=== PATIENT | female | born 1930 | race Caucasian/White ===

== ENCOUNTER → 2016-09-13 | Outpatient (CLI) | payer OTHER | LOC: FIMAGING 11:13 | PROVIDERS: ATTEND Family Medicine | DX: Z12.31 Encounter for screening mammogram for malignant neoplasm of breast (principal) | CPT/HCPCS: G0202 ==

== ENCOUNTER → 2016-10-18 | Outpatient (CLI) | payer OTHER | LOC: FIMAGING 09:57 | PROVIDERS: ATTEND Family Medicine | DX: M51.16 Intervertebral disc disorders with radiculopathy, lumbar region (principal); M43.16 Spondylolisthesis, lumbar region; M41.86 Other forms of scoliosis, lumbar region; M16.11 Unilateral primary osteoarthritis, right hip; M53.3 Sacrococcygeal disorders, not elsewhere classified ==

== ENCOUNTER → 2017-08-18 | Outpatient (CLI) | payer OTHER | LOC: FIMAGING 09:20 | PROVIDERS: ATTEND Family Medicine | DX: I27.20 Pulmonary hypertension, unspecified (principal); I77.9 Disorder of arteries and arterioles, unspecified; R91.1 Solitary pulmonary nodule ==

== ENCOUNTER → 2018-03-06 | Outpatient (CLI) | payer OTHER | LOC: FIMAGING 10:04 | PROVIDERS: ATTEND Orthopaedic Surgery | DX: M16.11 Unilateral primary osteoarthritis, right hip (principal) ==

== ENCOUNTER → 2018-03-26 | Outpatient (CLI) | payer OTHER | LOC: BHLMT 10:00 | PROVIDERS: ATTEND Internal Medicine Cardiovascular Disease | DX: Z01.810 Encounter for preprocedural cardiovascular examination (principal); I50.9 Heart failure, unspecified | CPT/HCPCS: 93306-PO ==

== ENCOUNTER 2018-04-02 05:41 | Inpatient (IN) | payer OTHER ==
[2018-04-02] MEDS ORDERED: TRANEXAMIC ACID 1,000 MG in NS 100 ML IV ONE (06:00)
[2018-04-02] MEDS ORDERED: POVIDONE-IODINE 20 ML in SODIUM CL IRRIG SOLUTION 500 ML IRR ONE (06:00)
[2018-04-02] MEDS ORDERED: ROPIVACAINE 0.2% 80 MG, EPINEPHrine 0.2 MG, KETOROLAC TROMETHAMINE 30 MG in SYRINGE 0 ML IU ONE (06:00)
[2018-04-02] MEDS ORDERED: ACETAMINOPHEN 325 MG TAB PO ONE (06:12)
[2018-04-02] MEDS ORDERED: FAMOTIDINE 20 MG TAB PO ONE (06:12)
[2018-04-02] MEDS ORDERED: DEXAMETHASONE 4 MG/ML VIAL IVP ONE (06:12)
[2018-04-02] MEDS ORDERED: ceFAZolin 2 GM/DEXTROSE 100 ML IV ONE (06:12)
[2018-04-02] MEDS ORDERED: LR 1,000 ML IV ONE (06:13)
[2018-04-02] MEDS ORDERED: LIDOCAINE 1% 2 ML INJ ID PRN (06:13)
[2018-04-02] MEDS ORDERED: BUPIVACAINE/EPI 0.25% 30 ML SDV ONE (06:36)
--- NOTE | 2018-04-02 07:00 | PDHPUP ---
History & Physical Update H&P update statement: This history and physical update is based on an assessment of the patient which was completed after admission or registration (within 24 hours), but prior to the surgery/procedure. H&P update: H&P reviewed & patient examined, no change in patient's condition since H&P completed
[2018-04-02] MEDS ORDERED: fentaNYL 100 MCG/2 ML INJ ONE (07:13)
--- NOTE | 2018-04-02 07:14 | PDANEPAE ---
ANE History of Present Illness Right RONEL for hip pain ANE Past Medical History - Cardiovascular History Hx Hypertension: Yes Hx Arrhythmias: No Hx Chest Pain: No Hx Coronary Artery / Peripheral Vascular Disease: No Hx CHF / Valvular Disease: No Hx Palpitations: No - Pulmonary History Hx COPD: No Hx Asthma/Reactive Airway Disease: Yes Hx Recent Upper Respiratory Infection: No Hx Oxygen in Use at Home: No Hx Sleep Apnea: No Sleep Apnea Screening Result - Last Documented: Negative Pulmonary History Comment: + asthma. + mod-severe pulmonary hypertension on echo (03/26/18) - Neurologic History Hx Cerebrovascular Accident: No Hx Seizures: No Hx Dementia: No - Endocrine History Hx Diabetes: No Hypothyroid: No Hyperthyroid: No Obesity: no - Renal History Hx Renal Disorders: No - Liver History Hx Hepatic Disorders: No - Neurological & Psychiatric Hx Hx Neurological and Psychiatric Disorders: No - Cancer History Hx Cancer: No - Congenital Disorder History Hx Congenital Disorders: No - GI History Hx Gastrointestinal Disorders: Yes Gastrointestinal History Comment: hx dysphagia - Other Health History Other Health History: bilateral hearing aids. wears glasses. chronic pain from hip, has been having trouble walking - Chronic Pain History Chronic Pain: Yes (right hip) - Surgical History Prior Surgeries: hysterectomy. cholecystectomy. cateract surgery ANE Review of Systems Review of Systems: - Exercise capacity Exercise capacity: limited by disability METS (RN): 3 METS - Cardio Pulmonary Function Testing Transthoracic echocardiogram (TTE): 03/26/18: Normal LV size and function. EF 67%. Normal wall motion. Moderate bi- atrial enlargement. Mild AI without . Moderate MR without MV prolapse. Moderate to sever TR with moderate to severe pulmonary hypertension. Mildly enlarged ascending thoracic aorta. ANE Patient History - Allergies Allergies/Adverse Reactions: Sulfa (Sulfonamide Antibiotics) Allergy (Verified 04/02/18 06:22) Rash - Home Medications Home medications: home medication list seen and reviewed Home Medications: Cholecalciferol Vit D3 [Vitamin D3 (*)] 1,000 units PO DAILY 03/02/18 [Last Taken 03/26/18] Fluticasone/Salmeter 250/50Mcg [Advair 250/50 (*)] 1 puffs IH HS 03/02/18 [Last Taken 03/31/18] Ibuprofen [Motrin (*)] 200 mg PO DAILY PRN 03/02/18 [Last Taken 03/26/18] Lisinopril/Hctz 20/12.5MG [Zestoretic/Prinzide 20/12.5MG (*)] 1 ea PO DAILY 09/12 [Last Taken 04/01/18] Albuterol Sulfate [Proair Hfa] PRN 03/03/18 [Last Taken 03/26/18] Amlodipine Besylate 2.5 mg PO DAILY 04/02/18 [Last Taken 04/02/18 04:30] Tylenol 1,000 mg PO Q6 PRN 04/02/18 [Last Taken 04/01/18] - NPO status NPO Status: no food or drink >8 hours NPO Since - Liquids (Date): 04/01/18 NPO Since - Liquids (Time): 20:30 NPO Since - Solids (Date): 04/01/18 NPO Since - Solids (Time): 20:30 - Anes Hx Anes Hx: post operative nausea and vomiting - Smoking Hx Smoking Status: Never smoked - Family Anes Hx Family Anes Hx: none Family Hx Anesthesia Complications: none ANE Labs/Vital Signs - Vital Signs Blood Pressure: 145/87 Heart Rate: 77 Respiratory Rate: 18 O2 Sat (%): 93 Height: 152.4 cm Weight: 59.874 kg ANE Physical Exam - Airway Neck exam: decreased ROM Mallampati Score: Class 2 Mouth exam: normal dental/mouth exam - Pulmonary Pulmonary: no respiratory distress - Cardiovascular Cardiovascular: regular rate and rhythym - ASA Status ASA Status: III ANE Anesthesia Plan Anesthesia Plan: spinal
[2018-04-02] MEDS ORDERED: PROPOFOL/EMULSION 500 MG/50 ML BOTTLE IV ONE (07:17)
[2018-04-02] MEDS ORDERED: PROPOFOL 200 MG/20 ML VIAL ONE ×2 (08:23→08:54)
[2018-04-02] MEDS ORDERED: PHENYLEPHRINE HCL 100 MCG/ML SYR IVP PRN (08:48)
[2018-04-02] MEDS ORDERED: DEXAMETHASONE 4 MG/ML VIAL IVP PRN (08:48)
[2018-04-02] MEDS ORDERED: fentaNYL 100 MCG/2 ML INJ IVP PRN (08:48)
[2018-04-02] MEDS ORDERED: MEPERIDINE 25 MG/0.5 ML AMP IVP PRN (08:48)
[2018-04-02] MEDS ORDERED: NALOXONE HCL 0.4 MG/ML INJ IVP PRN (08:48)
[2018-04-02] MEDS ORDERED: METOCLOPRAMIDE 10 MG/2 ML VIAL IVP PRN ×2 (08:48→09:41)
[2018-04-02] MEDS ORDERED: ONDANSETRON 4 MG/2 ML VIAL IVP PRN ×2 (08:48→09:41)
[2018-04-02] MEDS ORDERED: LABETALOL HCL 20 MG/4 ML INJ IVP PRN (08:48)
[2018-04-02] MEDS ORDERED: LR 500 ML IV PRN (08:48)
[2018-04-02] MEDS ORDERED: ALBUTEROL 3 ML DEYVIAL IH PRN (08:48)
[2018-04-02] MEDS ORDERED: ACETAMINOPHEN 500 MG TAB PO PRN (08:48)
[2018-04-02] MEDS ORDERED: PROMETHAZINE HCL 25 MG/ML INJ IVP PRN ×2 (08:48→09:41)
[2018-04-02] MEDS ORDERED: oxyCODONE IR 5 MG TAB PO PRN ×2 (08:48→09:41)
[2018-04-02] MEDS ORDERED: HYDROmorphONE/DILAUDID 2 MG/ML INJ IVP PRN (08:48)
[2018-04-02] MEDS ORDERED: TEMAZEPAM 15 MG CAP PO PRN (09:41)
[2018-04-02] MEDS ORDERED: ONDANSETRON DISINTEGRATING 4 MG TAB PO PRN (09:41)
[2018-04-02] MEDS ORDERED: POLYETHYLENE GLYCOL 3350 17 GM PKT PO PRN (09:41)
[2018-04-02] MEDS ORDERED: BISACODYL 10 MG SUPP PR PRN (09:41)
[2018-04-02] MEDS ORDERED: diphenhydrAMINE 25 MG CAP PO PRN (09:41)
[2018-04-02] MEDS ORDERED: DIPHENOXYLATE/ATROPINE LOMOTIL 1 TAB PO PRN (09:41)
[2018-04-02] MEDS ORDERED: MAGNESIUM HYDROXIDE 30 ML UDCUP PO PRN (09:41)
[2018-04-02] MEDS ORDERED: PROMETHAZINE HCL 25 MG SUPPR PR PRN (09:41)
[2018-04-02] MEDS ORDERED: LACTULOSE 20 GM/30 ML UDCUP PO PRN (09:41)
--- NOTE | 2018-04-02 09:41 | POSTOPPROG ---
Post Op Note Date of Operation: 04/02/18 Surgeon: Mario Woods Oncologist: ROSALIND Doran Anesthesiologist: MD Darren Anesthesia: IV Sedation, Spinal Pre-op Diagnosis: R hip OA Post-op Diagnosis: same Procedure: R anterior RONEL with ANJUM Inf/Abcess present in the surg proc area at time of surgery?: No EBL: 100-500 (300) Drains: Hemovac
[2018-04-02] MEDS ORDERED: LR 1,000 ML IV SCH (10:00)
--- NOTE | 2018-04-02 10:53 | PDMN ---
Medical Necessity Medical necessity: Pt meets IP criteria per and [facility] S-560 (Hip Arthroplasty) ; Medicare IP only procedure.
[2018-04-02] MEDS: ACETAMINOPHEN 325 MG TAB PO SCH ×3 (11:46→23:33)
--- NOTE | 2018-04-02 12:09 | POSTANESTH ---
Post Anesthetic Evaluation Cardiovascular Status: Normal, Stable Respiratory Status: Normal, Stable Level of Consciousness/Mental Status: Can Participate in Eval Pain Control: Adequate, Prn Tx Ordered Nausea/Vomiting Control: Adequate, Prn Tx Ordered Complications Possibly Related to Anesthesia: None Noted
[2018-04-02] MEDS: ceFAZolin 2 GM/DEXTROSE 100 ML IV SCH ×2 (15:38→23:33)
[2018-04-02] MEDS ORDERED: SILVER NITRATE APPLICATOR 1 APPL TP ONE (19:53)
[2018-04-02] MEDS ORDERED: BUPIVACAINE 0.25% 10 ML SDV ONE (19:53)
[2018-04-02] MEDS: FLUTICASONE/SALMETER 250/50MCG DISKUS IH SCH (20:37)
[2018-04-02] MEDS: ASPIRIN 81 MG CHEWABLE TAB PO SCH (20:43)
[2018-04-02] MEDS: FAMOTIDINE 20 MG TAB PO SCH (20:43)
[2018-04-02] MEDS: SENNOSIDES/DOCUSATE SODIUM TAB PO SCH (20:44)
[2018-04-02] MEDS: CYCLOBENZAPRINE 10 MG TAB PO PRN (23:34)
[2018-04-03] MEDS: ACETAMINOPHEN 325 MG TAB PO SCH ×4 (05:56→23:08)
--- NOTE | 2018-04-03 07:57 | SOAPPROG ---
SOAP Progress Note Assessment/Plan: Assessment: Postop day 1 status post right anterior approach total hip arthroplasty with Jean-Paul Plan: Weight-bearing as tolerated with assistance, PT/OT DVT prophylaxis: Aspirin 81 mg twice daily, Osvaldo Nixon Incentive spirometry 10 times per hour Analgesics: Minimize narcotic use if possible. Celebrex Tylenol muscle relaxants as needed Disposition: To custodial facility likely on Friday04/03/18 07:55 Subjective: Patient very hard of hearing. Was able to get out of bed and ambulate with a walker yesterday. She denies fevers chills nausea vomiting chest pain shortness of breath numbness or tingling. Does complain of muscle spasms in her groin and thigh. Objective: Vital Signs Temp Pulse Resp BP Pulse Ox 36.7 C 72 16 140/73 H 91 L 04/03/18 04:00 04/03/18 04:00 04/03/18 04:00 04/03/18 04:00 04/03/18 04:00 Laboratory Results 04/03/18 05:40 04/02/18 04/03/18 04/04/18 05:59 05:59 05:59 Intake Total 3100 Output Total 1950 Balance 1150 Awake alert and oriented x3 No acute distress Easy nonlabored breathing Right thigh: Moderate swelling, minimal ecchymosis, clean dry intact incisions Drain removed Thigh and calf compartments soft compressible Sensation intact to light touch L4 - S1 Motor intact to EHL FHL tibialis anterior gastrocsoleus Palpable DP PT pulses - Time Spent With Patient Time Spent With Patient: 15 - Pending Discharge Pending Discharge Within 48 Hours: Yes Pending Discharge Date: 04/05/18 Pending Discharge Time: 11:00 ICD10 Worksheet Patient Problems: Problems Problem Status Onset Osteoarthritis of right hip Acute
[2018-04-03] MEDS: CHOLECALCIFEROL VIT D3 1,000 UNITS TAB PO SCH (09:37)
[2018-04-03] MEDS: LISINOPRIL/HCTZ 20/12.5MG 1 EA TAB PO SCH (09:37)
[2018-04-03] MEDS: SENNOSIDES/DOCUSATE SODIUM TAB PO SCH ×2 (09:38→21:43)
[2018-04-03] MEDS: ASPIRIN 81 MG CHEWABLE TAB PO SCH ×2 (09:38→21:42)
[2018-04-03] MEDS: FAMOTIDINE 20 MG TAB PO SCH ×2 (09:38→21:42)
--- NOTE | 2018-04-03 15:26 | ASMTCMCOM ---
CM Note CM Note Notes: Pt had planned OA of hip. Pt resides at [facility]. PT rec SNF, pt wants to go to [facility] and a referral was sent in [facility]. Pt likely d/c Friday. D/c plan of care: [facility] Date Signed: 04/03/2018 03:26 PM Electronically Signed By:RUTHIE Comer
--- NOTE | 2018-04-03 15:28 | GOP ---
DATE OF OPERATION: 04/02/2018 SURGEON: Mario Woods MD UTILIZATION REVIEW RN: Aron Doran, CSFA, LSA. Keyboarding Clerk was required correct for the procedure due to th e complexity of the case and patient condition for positioning, prepping and draping, retraction, and closure. ANESTHESIA: Spinal and IV sedation. PREOPERATIVE DIAGNOSIS: Right hip osteoarthritis. POSTOPERATIVE DIAGNOSIS: Right hip osteoarthritis. PROCEDURE PERFORMED: Right anterior approach total hip arthroplasty with MAKOplasty robotic guidance , fluoroscopic supervision greater than 1 hour. FINDINGS: SPECIMENS: 1 femoral head. ESTIMATED BLOOD LOSS: 300 cc. INDICATIONS: Patient has severe hip osteoarthritis that failed to improve with conservative measures , significantly affecting activities of daily living including walking. The patient elected to proce ed with anterior approach hip replacement using MAKOplasty robotic guidance after extensive discussio n of all possible approaches as well as the risks, benefits, pros, cons, expected recovery, and progn osis. Patient verbalized an understanding of the risks and benefits of the procedure and signed info rmed consent prior to the procedure. DESCRIPTION OF PROCEDURE: The patient was seen in the holding area. Operative consent and extremity were signed. Patient was then taken to the operating room. After smooth induction of spinal anesth esia and sedation, patient was placed in a supine position on the operating table with the arch table extension. Hip and contralateral iliac crest were prepped and draped in usual sterile fashion. Ope rative site was confirmed by signature. Operative time-out performed. Allergies reviewed. Antibiot ics and TXA administered. 3 pins were placed in contralateral iliac crest, and the pelvic array was fixed. It was well visualized by the robot. Desired incision for the anterior approach on the hip w as infiltrated with 0.25% Marcaine with epinephrine. The incision was made with a 10 blade and toño ed through the subcutaneous tissue to identify the TFL fascia. This was incised in line with the inc ision, and the TFL was retracted laterally. The lateral femoral circumflex vessels were coagulated w tran Gomez. Deep TFL fascia was incised, and the vastus lateralis was clearly exposed. Pre-caps ular fat was excised. T-shaped capsulotomy was performed, and the capsule was preserved for later cl osure. The femoral checkpoint was fixed into the anterior greater trochanter. Express registration was completed. Femoral neck cut was then performed based on pre-templated calculations and imaging. The femoral head was excised with a corkscrew. The acetabulum was exposed in standard fashion. The labrum, pulvinar, and soft tissues were excised sharply. The pelvic checkpoint was placed in the AI IS. Acetabular registration was performed using the robot. Reaming was then performed using the jessika ot to the desired size. The cup was impacted in place with the robotic guidance system. Good fixati on was achieved. The cup was irrigated and dried, and the liner was impacted into place achieving go od locking within the cup. The femur was then exposed in standard fashion. The femur was broached t o the desired size. Trial neck and head were attached, and the hip was relocated. Length and offset were confirmed using the robot. The position of all components was also confirmed at this point flu oroscopically. The foot was freed from the table, and stability was confirmed at 45 degrees and maxi mal flexion with 30 degrees of internal rotation. The foot was secured back to the table externally, rotated 90 degrees, extended jail down the floor, and stability was again confirmed. Hip was dis located, and the femoral trial components were removed. The stem was impacted into place. The trunn ion was cleaned and dried, and the head was impacted down onto the trunnion. The wound was copiously irrigated including the cup with pulse lavage, and the hip was once again relocated. The component placement was confirmed with fluoroscopy. All checkpoints were removed. Pelvic array was also remov ed. The wound was copiously irrigated with sterile solution. dilute Betadine solution was then irri gated in the wound and allowed to soak for 3 minutes before being irrigated out. Joint cocktail was injected, and soft tissue capsule was repaired with #1 Vicryl sutures as well as the indirect head of the rectus femoris. The drain was placed exiting distally and laterally from deep to TFL. The woun d was closed in layers with 0 Quill in TFL, fascia, and deep subcutaneous fat and 3-0 Versalok in the dermis. The wound was dressed with sterile dressing. The patient was safely awakened and taken to recovery room in stable condition. All critical portions of procedure were performed by myself, Dr. Woods. This operative note was creat ed by myself, and I was immediately available for emergency cross-coverage at all times. DRAINS: Hemovac x1. COMPLICATIONS: None. IMPLANTS: Trident II Tritanium cluster hole acetabular shell size 50, with a +0, 36 mm polyethylene liner; Accolade II size 4 stem, 127-degree offset with a 36 mm -5 mm head. /[id number]/MODL
[2018-04-03] MEDS: FLUTICASONE/SALMETER 250/50MCG DISKUS IH SCH (20:53)
[2018-04-04] MEDS: CYCLOBENZAPRINE 10 MG TAB PO PRN (01:10)
[2018-04-04] MEDS: ACETAMINOPHEN 325 MG TAB PO SCH ×4 (06:02→23:38)
[2018-04-04] MEDS: ASPIRIN 81 MG CHEWABLE TAB PO SCH ×2 (08:46→20:13)
[2018-04-04] MEDS: FAMOTIDINE 20 MG TAB PO SCH ×2 (08:46→20:13)
[2018-04-04] MEDS: LISINOPRIL/HCTZ 20/12.5MG 1 EA TAB PO SCH (08:46)
[2018-04-04] MEDS: CHOLECALCIFEROL VIT D3 1,000 UNITS TAB PO SCH (08:47)
[2018-04-04] MEDS: SENNOSIDES/DOCUSATE SODIUM TAB PO SCH ×2 (08:49→20:43)
--- NOTE | 2018-04-04 15:05 | SOAPPROG ---
SOAP Progress Note Assessment/Plan: Assessment: Postop day 2 status post right anterior approach total hip arthroplasty with Jean-Paul Plan: Weight-bearing as tolerated with assistance, PT/OT DVT prophylaxis: Aspirin 81 mg twice daily, Osvaldo Nixon Incentive spirometry 10 times per hour Analgesics: Minimize narcotic use if possible. Celebrex Tylenol muscle relaxants as needed Disposition: To correction facility likely tomorrow 04/03/18 07:55 04/04/18 15:04 Subjective: Pain better controlled today. Denies fevers chills nausea vomiting chest pain shortness of breath numbness or tingling. Ambulated with physical therapy this morning - went well. Objective: Vital Signs Temp Pulse Resp BP Pulse Ox 36.7 C 79 14 137/81 H 93 04/04/18 12:00 04/04/18 12:00 04/04/18 12:00 04/04/18 12:00 04/04/18 12:00 Laboratory Results 04/04/18 05:00 04/03/18 04/04/18 04/05/18 05:59 05:59 05:59 Intake Total 3100 1100 Output Total 1950 700 150 Balance 1150 400 -150 Awake alert and oriented x3 No acute distress Easy nonlabored breathing Right thigh: Moderate swelling, minimal ecchymosis, clean dry intact incisions Thigh and calf compartments soft compressible Sensation intact to light touch L4 - S1 Motor intact to EHL FHL tibialis anterior gastrocsoleus Palpable DP PT pulses - Time Spent With Patient Time Spent With Patient: 15 - Pending Discharge Pending Discharge Within 24 Hours: Yes Pending Discharge Date: 04/05/18 Pending Discharge Time: 10:00 ICD10 Worksheet Patient Problems: Problems Problem Status Onset Osteoarthritis of right hip Acute
[2018-04-04] MEDS: FLUTICASONE/SALMETER 250/50MCG DISKUS IH SCH (20:04)
[2018-04-05] MEDS: CHOLECALCIFEROL VIT D3 1,000 UNITS TAB PO SCH (09:53)
[2018-04-05] MEDS: LISINOPRIL/HCTZ 20/12.5MG 1 EA TAB PO SCH (09:53)
[2018-04-05] MEDS: ASPIRIN 81 MG CHEWABLE TAB PO SCH (09:53)
[2018-04-05] MEDS: FAMOTIDINE 20 MG TAB PO SCH (09:53)
[2018-04-05] MEDS: SENNOSIDES/DOCUSATE SODIUM TAB PO SCH ×2 (09:53→09:55)
--- NOTE | 2018-04-05 10:01 | PDIAF ---
- Diagnosis Code Status: Full Code - Medication Management Discharge Medications: electronically signed and located in the Home Medication List. - Orders Services needed: Physical Therapy Diet Recommendation: no restrictions on diet Diet Texture: Regular Texture Diet Wound Care Instructions: Leave surgical dressing in place unless drainage or redness presents Additional Instructions: WBAT see handout - Follow Up Care Current Providers and Referrals: Lora James MD [Primary Care Provider] - Mario Woods MD [Medical Doctor] -
[2018-04-05] MEDS: ACETAMINOPHEN 325 MG TAB PO SCH (10:02)
--- NOTE | 2018-04-05 11:23 | ASDISCHSUM ---
Discharge Information Plan Status:SNF Medically Cleared to Leave:04/04/2018 Discharge Date:04/04/2018 CM D/C Disposition:[facility] Facility ADT D/C Disposition:[facility] Facility Projected Discharge Date:04/05/2018 01:00 PM Transportation at D/C:Wheelchair Van Discharge Delay Reason: Follow-Up Date:04/05/2018 01:00 PM Discharge Slot:2 - 12:01 pm - 18:00 pm Final Diagnosis:R RONEL Placement Information Referral Type:*Group Home/SNF Referral ID:[id number] Provider Name:[facility] Address 1:[address] Address 2: City:[place] Selection Factors: State:[place] Patient Contact Information Contact Name:CHRISTY Relationship:Daughter Address: Work Phone: City: [facility] Phone: [facility]/Zip Code: Email: Financial Information Financial Class:Medicare Primary Plan Desc:MEDICARE INPATIENT Primary Plan Number:[id number] Secondary Plan Desc:JEFF PPO Secondary Plan Number:[id number] Assessment Information [facility] CM Progress Note CM Note CM Note Notes: Pt had planned OA of hip. Pt resides at [facility]. PT rec SNF, pt wants to go to [facility] and a referral was sent in [facility]. Pt likely d/c Friday. D/c plan of care: [facility] Date Signed: 04/03/2018 03:26 PM Electronically Signed By:RUTHIE Comer Case Management Discharge Plan Note Case Management Discharge Discharge Order Complete? Answers: Yes Patient to Obtain Answers: [facility] Arranged Answers: Other Notes: [facility] W/C Transport will Pick (Date 04/05/2018 02:00 PM & Time) Faxed Final Orders Answers: Yes Family Notified Answers: Yes Notes: Spoke to Dtr about transport Discharge Comments Notes: Patient has been discharged to [facility]. They will provide transportation. Date Signed: 04/05/2018 11:21 AM Electronically Signed By:Patricia Thomas LCSW Intervention Information Intervention Type:*IM-Signed Date of Service:04/05/2018 11:22 AM Patient Type:Inpatient Staff Member:BABAR Thomas Judith Hours:0.25 Discipline:Tubing Tester Severity: Comment:
[2018-04-05 12:16] VITALS: BP 165/87
--- NOTE | 2018-04-07 08:56 | GDS ---
ADMISSION DIAGNOSIS: Right hip osteoarthritis. DISCHARGE DIAGNOSIS: Right hip osteoarthritis.. NAME OF PROCEDURE: Right anterior approach total hip arthroplasty with MAKOplasty robotic guidance. HOSPITAL COURSE: Patient was then admitted on the above date, underwent the above procedure without complication. She tolerated it well. Pain was well controlled postoperatively. She received aspiri n 81 mg b.i.d., LAKHWINDER hose and SCDs for DVT prophylaxis, and received 24 hours of prophylactic antibiot ics. She participated with physical therapy on subsequent postoperative days. Patient is 87 years o ld and lives alone and does require a custodial facility. She was deemed safe and accepted to the custodial facility and cleared for discharge on postoperative day 3. DISCHARGE INSTRUCTIONS: Provided. Follow up in 2 weeks for her postoperative check. DISPOSITION: correction facility. CONDITION UPON DISCHARGE: Stable. /[id number]/MODL
== END 2018-04-05 14:25 | DRG 470 ==
LOC: F3N 05:41
PROVIDERS: ADMIT Orthopaedic Surgery; ATTEND Orthopaedic Surgery
PROC: 0SR904Z Replacement of Right Hip Joint with Ceramic on Polyethylene Synthetic Substitute, Open Approach (ICD-10-PCS; principal; 2018-04-02 07:15)
PROC: 8E0Y0CZ Robotic Assisted Procedure of Lower Extremity, Open Approach (ICD-10-PCS; principal; 2018-04-02 07:15)
DX: M16.11 Unilateral primary osteoarthritis, right hip (principal); E11.9 Type 2 diabetes mellitus without complications; I11.0 Hypertensive heart disease with heart failure; J45.909 Unspecified asthma, uncomplicated; I27.20 Pulmonary hypertension, unspecified
CPT/HCPCS: 97116-GP; 97161-GP; 97166-GO; 97530-GP; 97535-GO; G8978-GP-CK; G8979-GP-CI; G8980-GP-CI; G8987-GO-CL; G8988-GO-CJ; J0171; J0690; J1100; J1885; J2704; J2795; J3010

== ENCOUNTER → 2018-07-03 | Outpatient (CLI) | payer OTHER ==
[~2018-07-03] MED LIST: IOPAMIDOL (ISOVUE 370) 100 ML BTL IV ONE
== END ==
LOC: FIMAGING 12:21
PROVIDERS: ATTEND Internal Medicine Pulmonary Disease
DX: R06.09 Other forms of dyspnea (principal); R91.8 Other nonspecific abnormal finding of lung field; I27.20 Pulmonary hypertension, unspecified
CPT/HCPCS: 71275; Q9967; 82565-PO

== ENCOUNTER 2018-08-05 06:31 | Day surgery (SDC) | payer OTHER ==
[2018-08-05] MEDS ORDERED: NS 1,000 ML IV ONE (06:34)
[2018-08-05] MEDS ORDERED: LIDOCAINE 1% 300 MG/30 ML SDV ONE (06:45)
[2018-08-05 07:14] LABS: PLATELET COUNT 204 10^3/uL (150-400)
[2018-08-05 07:22] LABS: INR 0.95 (0.83-1.16); PROTIME(PATIENT) 12.3 SEC (12.0-15.0)
--- NOTE | 2018-08-05 08:12 | PDPROPOC ---
Sedation Plan of Care Sedation Plan of Care: vital signs stable, mental status noted, patient educated of risks, benefits, alternatives, patient can tolerate sedation ASA Classification: ASA 3 Planned drugs: fentanyl, midazolam Mallampati Score: Class 2 Mallampati Reference Image: Patient passed 3-3-2 rule?: Yes
[2018-08-05] MEDS ORDERED: EPOPROSTENOL SODIUM (ARGININE) 300,000 NG in NS 100 ML IV ONE (08:14)
--- NOTE | 2018-08-05 08:14 | PDGENHP ---
History & Physical Chief Complaint: BLACK History of Present Illness: 88 yo F with progressive BLACK and echocardiographic e /o PH. No syncope, + leg swelling. No h/o VTE, autoimmune disease Pertinent Past, Social, Family History: reviewed and updated Relevant Physical Exam: NAD, RRR, no m/r/g, hard of hearing, A and O x 3 Cardiorespiratory Assessment: 88 yo F with PH. proceed with RHC. See janet note for full details
--- NOTE | 2018-08-05 08:21 | SUROPNOTE ---
LUZ Operative Report - Surgery PROCEDURE PERFORMED: Diagnostic right heart catheterization with ultrasound guided vascular access, a shunt study/run and acute pulmonary vasoreactivity testing with supplemental oxygen as well as IV epoprostenol PREOPERATIVE DIAGNOSIS: Pulmonary Arterial Hypertension. POSTOPERATIVE DIAGNOSIS: Pulmonary Arterial Hypertension. ATTENDING PHYSICIAN: Dnoald Bateman MD ANESTHESIA: 5 mL of 2% lidocaine injected locally. COMPLICATIONS: None. ESTIMATED BLOOD LOSS: None. PROCEDURE DESCRIPTION: Informed consent was obtained prior to the procedure. A time-out was performed prior to the procedure, confirming the patient's name, procedure type and procedure location. The patient was prepped and draped in the usual sterile fashion, exposing the right neck. The right internal jugular vein was visualized with real-time ultrasound guidance, and the skin above the right internal jugular was anesthetized with 5 mL of 2% lidocaine. The right internal jugular vein was then accessed with 1 stick without arterial puncture under direct real-time ultrasound guidance. Position in the venous system was confirmed with the ultrasound as well as fluoroscopy, and a 7-Burkinan "Precision " micropuncture kit was used to place a 7-Burkinan lumen introducer sheath via modified Seldinger technique. A 7-Burkinan Saltillo-Tamara catheter was then advanced through the sheath into the right atrium, right ventricle, pulmonary artery and pulmonary artery occlusion pressure positions. Given her high SVC saturation, a shunt run was performed. Hemodynamic measurements and saturation measurements were obtained in the usual fashion. Following these measurements, 100% supplemental oxygen was administered via a nonrebreather mask at 15 L/min for 10 minutes and measurements repeated. Next the patient was administered IV epoprostenol starting at 2 ng/kg/min and increased up to 12 ng/kg/min in serial increments and repeat measurements were obtained. Following these measurements, the Saltillo-Tamara catheter was removed, followed by removal of the sheath, and hemostasis was achieved. There were no complications from the procedure. PROCEDURE FINDINGS: Sinus Rhythm: Yes Hgb 15.4 Baseline SpO2 91% Procedure Findings: Baseline 100% oxygen Veletri (epoprostenol) Units RA [a/v (mean)] 13/16 (13) NA mmHg RV [Sys/Levin (RVEDP)] 49/2 (15) NA mmHg PA [Sys/Levin (Mean)] 55/24 (35) 52/26 (36) 39/23 (36) mmHg PAOP [End Exp (Mean)] 15 15 15 mmHg TD CO (CI) 5.03 (3.24) NA NA L/min (L/min/m2) Janey CO (CI) 5.41 (3.49) 5.99 (3.86) 7.24 (4.66) L/min (L/min/m2) TD PVR 3.97 NA NA SANCHEZ Janey PVR 3.70 3.51 2.90 SANCHEZ PA sat% 78% 88.2 80% % SpO2 sat% 91% 100% 91% % Venous Oxygen Saturation SaO2: SVC RA RV PA 80.5% 78.1% 78.1% 78.1% IMPRESSION: 88 year old female with progressive BLACK and idiopathic pulmonary arterial hypertension. Although patient does not have significant valvular heart disease or CHF, nor does she have significant asthma or COPD based on PFTs. 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 # Pulmonary arterial hypertension, moderate # NYHAC III symptoms # No evidence of acute vasoreactivity to epoprostenol # No evidence of left to right shunt # Nocturnal hypoxemia PLAN: # With patient's permission, I called both of her sons and discussed her results and restated my recommendations # Patients son's will discuss more with her to readdress whether she would consider nocturnal supplemental oxygen therapy as well as a trial of PDE5i via daily Adcirca. # Patient to follow up in clinic to discuss results and consider above therapies # All questions answered.
[2018-08-05] MEDS ORDERED: ATROPINE SULFATE 1 MG/10 ML SYR IVP PRN (09:10)
== END 2018-08-05 10:20 | disposition home or self-care (01) ==
LOC: FCATH 06:31
PROVIDERS: ATTEND Internal Medicine Pulmonary Disease
PROC: B244ZZ3 Ultrasonography of Right Heart, Intravascular (ICD-10-PCS; principal; 2018-08-05)
PROC: 4A023N6 Measurement of Cardiac Sampling and Pressure, Right Heart, Percutaneous Approach (ICD-10-PCS; principal; 2018-08-05)
DX: I27.20 Pulmonary hypertension, unspecified (principal); R09.02 Hypoxemia; R06.09 Other forms of dyspnea; E11.9 Type 2 diabetes mellitus without complications; Z79.82 Long term (current) use of aspirin
CPT/HCPCS: J1325; J1644